=== PATIENT | female | born 1945 | race Caucasian/White ===

== ENCOUNTER → 2020-05-19 16:43 | Outpatient (CLI) | payer OTHER, SELFPAY ==
--- NOTE | ~2020-05-19 | XR_ITS ---
XR knee RT min 4V 05/19/2020 17:03 Indication: Right knee pain Procedure: 4 views right knee Comparison: No prior studies for comparison. Findings: No fracture or traumatic malalignment. Small joint effusion. No significant joint space kumar rowing. No foreign bodies. Impression: 1: No acute fracture. Small joint effusion. Reviewed, dictated and finalized at location A. Impression: 1: No acute fracture. Small joint effusion.
== END ==
PROVIDERS: PCP Physician Assistant; Visit Provider Physician Assistant
DX: M25.461 Effusion, right knee (principal)
CPT/HCPCS: 73564

== ENCOUNTER → 2021-12-24 10:59 | Outpatient (CLI) | payer MEDICARE, SELFPAY ==
--- NOTE | ~2021-12-24 | DEXA_ITS ---
Bone Density Report Name: MAGNUS JAMES Age: 76 Sex: Female Ethnicity: White Date of : 1945 Indication: osteopenia; height loss; postmenopausal Referring Provider: Crystal Garcia Study: Bone densitometry was performed. Exam Date: December 24, 2021 Accession number: [id number] Bone Density: Region BMD T-score Z-score Classification AP Spine (L1, L2) 1.086 1.0 3.4 Normal Femoral Neck (Left) 0.640 -1.9 0.4 Osteopenia Total Hip (Left) 0.788 -1.3 0.7 Osteopenia Femoral Neck (Right) 0.655 -1.7 0.5 Osteopenia Total Hip (Right) 0.772 -1.4 0.6 Osteopenia Total Hip Mean 0.780 -1.4 0.7 Osteopenia World Health Organization criteria for BMD impression classify patients as: Normal (T-score at or above -1.0), Osteopenia (T-score between -1.0 and -2.5), or Osteoporosis (T-score at or below -2.5). 10-year Fracture Risk(1): Major Osteoporotic Fracture 15% Hip Fracture 5.1% Reported Risk Factors: [place] (), Neck BMD=0.640, BMI=19.3, alcohol use (1) FRAX(R) Version 3.08. Fracture probability calculated for an untreated patient. Fracture probability may be lower if the patient has received treatment. Previous Exams: Region Exam Age BMD T-score BMD Change BMD Change Date g/cm2 vs Baseline vs Previous AP Spine(L1, L2) 12/24/2021 76 1.086 1.0 0.075* 0.001 05/28/2019 74 1.084 1.0 0.074* 0.085* 12/28/2016 71 0.999 0.2 -0.011 -0.006 04/08/2014 68 1.005 0.2 -0.005 -0.017 07/29/2011 66 1.023 0.4 0.012 -0.026* 08/08/2008 63 1.049 0.6 0.038* 0.038* 03/01/2006 60 1.011 0.3 Total Hip(Left) 12/24/2021 76 0.788 -1.3 -0.040* 0.046* 05/28/2019 74 0.742 -1.6 -0.086* -0.026 12/28/2016 71 0.768 -1.4 -0.060* -0.010 04/08/2014 68 0.778 -1.3 -0.050* -0.008 07/29/2011 66 0.786 -1.3 -0.042* -0.060* 08/08/2008 63 0.846 -0.8 0.018 0.018 03/01/2006 60 0.828 -0.9 Total Hip(Right) 12/24/2021 76 0.772 -1.4 -0.081* -0.015 05/28/2019 74 0.787 -1.3 -0.066* -0.007 12/28/2016 71 0.794 -1.2 -0.059* -0.009 04/08/2014 68 0.802 -1.1 -0.051* -0.006 07/29/2011 66 0.809 -1.1 -0.044* -0.045* 08/08/2008 63 0.854 -0.7 0.001 0.001 03/01/2006 60 0.853 -0.7 *Denotes significanc
== END ==
PROVIDERS: PCP Family Medicine; Visit Provider Physician Assistant
DX: Z78.0 Asymptomatic menopausal state (principal); M85.852 Other specified disorders of bone density and structure, left thigh; M85.851 Other specified disorders of bone density and structure, right thigh
CPT/HCPCS: 77080

== ENCOUNTER 2022-03-09 10:54 | Outpatient (CLI) | payer MEDICARE, SELFPAY ==
[2022-03-09 13:12] LABS: Hemoglobin 11.7 g/dL (12.0-15.0); Mean Corpuscular HGB Conc 32.5 g/dl (32-36); Mean Corpuscular Hemoglobin 31.8 pg (26-34); Mean Corpuscular Volume 97.8 fl (80-100); Mean Platelet Volume 10.6 fl (7.4-10.4); Platelet Count Result 237 k/mm3 (150-375); Red Blood Count 3.68 M/mm3 (4.2-5.4); Red Cell Distribution Width 14.2 % (11.5-14.5); White Blood Count 5.2 K/mm3 (4.5-10.0)
[2022-03-09 13:19] LABS: Parathyroid Intact 18.5 pg/mL (7.5-53.5)
[2022-03-09 13:23] LABS: Free T4 Free Thyroxine 1.15 ng/mL (0.78-2.19); Vitamin D 25 Hydroxy 51.4 ng/mL
[2022-03-09 13:37] LABS: Thyroid Stimulating Hormone 0.423 uIU/mL (0.465-4.680); Thyroid Stimulating Hormone Reflex 0.429 uIU/mL (0.465-4.68)
== END 2022-03-09 10:55 | disposition home or self-care (01) ==
LOC: ANHWCLAB 10:57
PROVIDERS: PCP Family Medicine; Visit Provider Internal Medicine Endocrinology, Diabetes & Metabolism
DX: E03.9 Hypothyroidism, unspecified (principal); R94.6 Abnormal results of thyroid function studies; M85.89 Other specified disorders of bone density and structure, multiple sites; R79.89 Other specified abnormal findings of blood chemistry; F41.1 Generalized anxiety disorder
CPT/HCPCS: 36415; 82306; 83970; 84439; 84443; 85027

== ENCOUNTER 2022-12-14 00:48 | Day surgery (SDC) | payer MEDICARE, SELFPAY ==
[2022-12-05 09:26] VITALS: BMI 18.6
[2022-12-14 09:20] VITALS: BP 116/66; PULSE 72; RESP 18; TEMP 36.4; O2SAT 100; BMI 18.1
[2022-12-14] MEDS: LACTATED RINGERS 1,000 ML 150 ML IV CONT (09:39)
--- NOTE | 2022-12-14 10:26 | WPDANESEPPF ---
Anes - Initial Pre Proc Eval Procedure: Operation Date: 12/14/22 10:30 Proposed Procedures p Colonoscopy - Krishna Rahman MD s [facility] Hemorrhoid Treatment - Krishna Rahman MD Date/Time: 12/14/22 10:26 Surgeon: Krishna Rahman MD Pre Op Diagnosis: Melena Patient Data Age: 77 Gender: F Height: 1.78 m Weight: 57.4 kg Last Vital Signs Temp 97.5 F L 12/14/22 09:20 Pulse 72 12/14/22 09:20 Resp 18 12/14/22 09:20 BP 116/66 12/14/22 09:20 Pulse Ox 100 12/14/22 09:20 O2 Del Method Room Air 12/14/22 09:20 Allergies Allergy/AdvReac Type Severity Reaction Status Date / Time No Known Allergies Allergy Verified 12/14/22 09:28 Home Medications Medication Instructions Recorded Confirmed Type jvapplscvtxt-kqfmjhcj-foywjk tablet 1 tablet PO DAILY 05/19/20 12/14/22 History citalopram 40 mg tablet 40 mg PO DAILY #90 tabs 05/01/22 12/14/22 Rx loratadine 10 mg tablet (Claritin) 10 mg PO DAILY 05/05/22 12/14/22 History calcium citrate 315 mg 1 tablet PO BID 06/24/22 12/14/22 History calcium-vitamin D3 6.25 mcg (250 unit) tablet (Citracal + Vitamin D Maximum) levothyroxine 112 mcg tablet 112 mcg PO DAILY #30 tabs 09/05/22 12/14/22 Rx alprazolam 0.5 mg tablet 0.5 mg PO TID PRN anxiety #30 tabs 12/12/22 12/14/22 Rx Patient hx anesthesia problems: none Family hx anesthesia problems: none Results Review: All pre-operative results and documents have been reviewed as part of the pre-operative evaluation. [facility] Past Medical History Medical History (Updated 11/08/22 @ 12:38 by Heather Apple APRN) BMI between 19-24,adult Chronic constipation Hematochezia Hypothyroidism determined by thyroid function test Osteopenia Right knee buckling Right knee pain Surgical History Surgical History History of tubal ligation Family History Family History Sibling Acute myocardial infarction Mother Family history of Parkinson's disease Grandparent Family history of malignant neoplasm of breast in first degree relative Father Family history of thoracic aortic aneurysm Social History Social History Smoking status: Never smoker Second hand tobacco smoke exposure: No Alcohol intake: current Drinks per week: 14 Substance use: never Substance use type: does not use Living arrangements: with family Occupation/Education: retired Gender identity (if verbalized by the patient): Female Sexual Orientation (if Verbalized by the Patient): Straight or Heterosexual Spiritual care concerns: No Agree to blood products: Yes Anes - Eval Final PreProcedure Day of Procedure 12/14/22 10:26 Patient weight: normal Heart: regular rate and rhythm Lungs: clear to auscultation Airway: Mallampati scale class II Neurological: alert and oriented Last oral intake: >/= 8 hours ASA classification: II Emergent: no Anesthetic plan: proceed Anesthesia type and monitoring: general GIVS and standard monitoring Results Review: All pre-operative results and documents have been reviewed as part of the pre-operative evaluation. Informed Consent: The patient's anesthetic plan and its attendant risks and benefits were discussed with the patient/family/POA. Questions were solicited and answers provided to the satisfaction of the patient/family/POA.
--- NOTE | 2022-12-14 10:32 | PM.HPGS ---
History of Present Illness History of Present Illness Consent: Risks, benefits, and alternatives have been discussed and questions answered. Patient agrees to proceed with procedure. Chief complaint: Melena Narrative: Belkis Osei is a 77 year old female with last colonoscopy 2012, lately has been dealing also with hemorrhoids Review of Systems Constitutional: Constitutional: Denies headache(s) and Denies weakness Eyes: Eyes: Denies blurry vision ENT: Reports Normal hearing present, Denies headache(s) and Denies neck pain Cardiovascular: Cardiovascular: Denies chest pain and Denies dyspnea Respiratory: Respiratory: Denies dyspnea Gastrointestinal: Gastrointestinal: Reports no additional gastrointestinal complaints Genitourinary: Genitourinary: Denies dysuria Musculoskeletal: Musculoskeletal: Denies neck pain Integumentary/Breasts: Skin/Breast: Denies dry skin Neurologic: Reports Normal hearing present, Denies headache(s) and Denies weakness Psychiatric: Psychiatric: Denies anxiety Endocrine: Endocrine: Denies change in body appearance Hematologic/Lymphatic: Hematologic/Lymphatic: Denies easy bleeding Allergic/Immunologic: Allergic/Immunologic: Denies urticaria PMFSH Past Medical History Medical History (Updated 12/14/22 @ 10:33 by Krishna Rahman MD) BMI between 19-24,adult Chronic constipation Colon cancer screening Hematochezia Hypothyroidism determined by thyroid function test Osteopenia Right knee buckling Right knee pain Surgical History Surgical History History of tubal ligation Family History Family History Sibling Acute myocardial infarction Mother Family history of Parkinson's disease Grandparent Family history of malignant neoplasm of breast in first degree relative Father Family history of thoracic aortic aneurysm Social History Social History Smoking status: Never smoker Second hand tobacco smoke exposure: No Alcohol intake: current Drinks per week: 14 Substance use: never Substance use type: does not use Living arrangements: with family Occupation/Education: retired Gender identity (if verbalized by the patient): Female Sexual Orientation (if Verbalized by the Patient): Straight or Heterosexual Spiritual care concerns: No Agree to blood products: Yes Meds Home Medications and Allergies Home Medications Medication Instructions Recorded Confirmed Type eojamctqugke-iaprukdx-daonpo tablet 1 tablet PO DAILY 05/19/20 12/14/22 History citalopram 40 mg tablet 40 mg PO DAILY #90 tabs 05/01/22 12/14/22 Rx loratadine 10 mg tablet (Claritin) 10 mg PO DAILY 05/05/22 12/14/22 History calcium citrate 315 mg 1 tablet PO BID 06/24/22 12/14/22 History calcium-vitamin D3 6.25 mcg (250 unit) tablet (Citracal + Vitamin D Maximum) levothyroxine 112 mcg tablet 112 mcg PO DAILY #30 tabs 09/05/22 12/14/22 Rx alprazolam 0.5 mg tablet 0.5 mg PO TID PRN anxiety #30 tabs 12/12/22 12/14/22 Rx Allergies Allergy/AdvReac Type Severity Reaction Status Date / Time No Known Allergies Allergy Verified 12/14/22 09:28 Vital Signs Vital Signs - 24 hr 12/14/22 09:20 Temperature 97.5 F L Pulse Rate 72 Respiratory Rate 18 Blood Pressure 116/66 Pulse Oximetry 100 Oxygen Delivery Room Air Exam Const: General: comfortable and no acute distress HENMT: Face/Nose/Sinus: Normal nares present Eyes: General: appearance normal, both eyes and all related structures Neck: Neck: no JVD Resp: Auscultation: clear to auscultation bilaterally Cardio: Rate: regular rate Rhythm: regular rhythm GI: Inspection: non-distended GI Palp: Yes Soft to palpation Skin: General skin exam: normal color Neuro: General: gait normal Speech: normal speech Extrem: General
--- NOTE | 2022-12-14 10:53 | SUR.OPER ---
colonoscopy ended at 1053 and irc started
[2022-12-14 11:00] VITALS: BP 94/52; PULSE 62; RESP 24; O2SAT 100
--- NOTE | 2022-12-14 11:01 | W.PM.PROC2 ---
Procedure Note - Detailed Date of Procedure 12/14/22 Pre-op Diagnosis blood in stools, hemorrhoids Post-op Diagnosis Same Procedure Performed irc of internal hemorrhoids Surgeon Krishna Rahman MD Anesthesia MAC (also had colonoscopy) Description of Procedure noted skin tags and external hemorrhoids, also small rectal prolapse. Found grade II internal hemorrhoids with anoscopy, IRC probe advanced and int hemorrhoids treated 1.5 seconds x5
[2022-12-14 11:10] VITALS: BP 109/64; PULSE 60; RESP 19; O2SAT 100
[2022-12-14 11:20] VITALS: BP 112/68; PULSE 62; RESP 21; O2SAT 100
== END 2022-12-14 11:27 | disposition home or self-care (01) ==
PROVIDERS: PCP Family Medicine; Visit Provider Internal Medicine Gastroenterology
PROC: 0DJD8ZZ Inspection of Lower Intestinal Tract, Via Natural or Artificial Opening Endoscopic (ICD-10-PCS; CPT 45378; principal; 2022-12-14 10:30)
PROC: (CPT 46930; 2022-12-14 10:30)
DX: Z12.11 Encounter for screening for malignant neoplasm of colon (principal); K62.3 Rectal prolapse; K64.1 Second degree hemorrhoids; K64.4 Residual hemorrhoidal skin tags; E03.9 Hypothyroidism, unspecified; M85.80 Other specified disorders of bone density and structure, unspecified site
CPT/HCPCS: 46930; G0121; J2704; J7120

== ENCOUNTER 2024-07-13 16:57 | Emergency (ER) | payer MEDICARE, SELFPAY ==
[2024-07-13 17:15] VITALS: BP 111/62; PULSE 69; RESP 16; TEMP 35.8; O2SAT 99
--- NOTE | 2024-07-13 18:24 | ED.ANIMALBIT ---
HPI - Animal Bite General Chief Complaint: Animal Bite Stated Complaint: dog bite left leg Time Seen by Provider: 07/13/24 18:24 Source: patient Mode of arrival: ambulatory Limitations: no limitations History of Present Illness HPI narrative: 79 yo F presents with dog bite to L lower leg. Was bit by neighbor's dog this afternoon. Bleeding controlled. Tetanus UTD. Pt states neighbor's dog UTD on vaccines. All systems reviewed and negative except as noted above. Related Data Home Medications Medication Instructions Recorded Confirmed ztdnnwqgypfp-espppeig-lclbuz tablet 1 tablet PO DAILY 05/19/20 07/13/24 calcium 315 mg (as 1 tablet PO BID 06/24/22 07/13/24 citrate)-vitamin D3 6.25 mcg (250 unit) tablet (Citracal + Vitamin D Maximum) Allergies Allergy/AdvReac Type Severity Reaction Status Date / Time No Known Allergies Allergy Verified 07/13/24 17:38 Review of Systems Review of Systems: CONSTITUTIONAL: Denies fever, chills, or sweats. EYES: Denies visual changes, redness, or discharge. ENT: Denies rhinorrhea, congestion, sore throat, or otalgia. CARDIOVASCULAR: Denies chest pain, palpitations, or edema. RESPIRATORY: Denies cough or dyspnea. GASTROINTESTINAL: Denies abdominal pain, nausea, vomiting, or diarrhea. GENITOURINARY: Denies dysuria or hematuria. SKIN: Denies rash or itching. Reports dog bite to left lower leg. MUSCULOSKELETAL: Denies back pain, joint pain, or myalgia. NEUROLOGIC: Denies headache, numbness, or weakness. PSYCHIATRIC: Denies anxiety or depression. All other systems reviewed are negative, except as documented in HPI. [facility] Past Medical History Medical History Anxiety BMI between 19-24,adult Chronic constipation Colon cancer screening Hematochezia Hypothyroidism determined by thyroid function test Osteopenia Right knee buckling Right knee pain Surgical History Surgical History History of tubal ligation Family History Family History Sibling Acute myocardial infarction Mother Family history of Parkinson's disease Grandparent Family history of malignant neoplasm of breast in first degree relative Father Family history of thoracic aortic aneurysm Social History Social History Smoking status: Never smoker Second hand tobacco smoke exposure: No Alcohol intake: current Drinks per week: 1 Substance use: never Substance use type: does not use Lack of Transportation: No Lack of Food: Never True Current Housing: I Have Housing Concerned About Future Housing: No Difficulty Paying Gas/Electric Bills: No Difficulty Paying for Meds: No Currently Unemployed: No Difficulty w/ Childcare or Family Care: No Living arrangements: with family Occupation/Education: retired Gender identity (if verbalized by the patient): Female Sexual Orientation (if Verbalized by the Patient): Straight or Heterosexual Spiritual care concerns: No Agree to blood products: Yes Comments At time of signature, agree with nursing past medical, surgical, social and family history. There is no relevant family history pertinent to the presenting complaint. Exam Narrative: GENERAL: This is a well-nourished, well-developed patient, in no apparent distress. HEAD: normocephalic, atraumatic. EYES: PERRL. Sclera clear/white. Vision is grossly intact. EARS: External ears normal, auditory canals clear and without drainage, TMs normal without perforation. Hearing grossly intact. NOSE: External nose normal with no obvious nasal discharge, nares without redness, no rhinorrhea. THROAT: Mucous membranes moist, posterior pharynx clear. NECK: Neck supple, non-tender without lymphadenopathy, masses or thyromegaly. CARDIOVASCULAR: Regular rate and rhythm without mur
== END 2024-07-13 18:41 | disposition home or self-care (01) ==
PROVIDERS: Emergency Provider Nurse Practitioner Family; PCP Family Medicine
DX: S81.852A Open bite, left lower leg, initial encounter (principal); W54.0XXA Bitten by dog, initial encounter; E03.9 Hypothyroidism, unspecified; M85.80 Other specified disorders of bone density and structure, unspecified site
CPT/HCPCS: 99213; G0463

== ENCOUNTER 2024-08-06 13:27 | Outpatient (CLI) | payer MEDICARE, SELFPAY ==
--- NOTE | ~2024-08-06 | DEXA_ITS ---
Bone Density Report Name: MAGNUS JAMES Age: 79 Sex: Female Ethnicity: White Date of : 1945 Indication: postmenopausal; screening for osteoporosis; secondary osteoporosis; Referring Provider: Christina Fuller Study: Bone densitometry was performed. Exam Date: August 06, 2024 Accession number: [id number] Bone Density: Region BMD T-score Z-score Classification AP Spine(L1-L4) 1.236 1.7 4.5 Normal Femoral Neck (Left) 0.640 -1.9 0.5 Osteopenia Total Hip (Left) 0.693 -2.0 0.1 Osteopenia Femoral Neck (Right) 0.700 -1.3 1.0 Osteopenia Total Hip (Right) 0.737 -1.7 0.4 Osteopenia Femoral Neck Mean 0.670 -1.6 0.7 Osteopenia Total Hip Mean 0.715 -1.9 0.3 Osteopenia World Health Organization criteria for BMD impression classify patients as: Normal (T-score at or above -1.0), Osteopenia (T-score between -1.0 and -2.5), or Osteoporosis (T-score at or below -2.5). 10-year Fracture Risk(1): Major Osteoporotic Fracture 12% Hip Fracture 3.6% Reported Risk Factors: [place] (), Neck BMD=0.640, BMI=18.7, secondary osteoporosis (1) FRAX(R) Version 3.08. Fracture probability calculated for an untreated patient. Fracture probability may be lower if the patient has received treatment. Clinical Information Provided by Patient: Has secondary osteoporosis Has used the following medications: Calcium Patient maximum height was 70 Menopause Age: 46 No regular weight bearing exercise Does not regularly consume dairy products Drinks caffeinated beverages Onset of menses at age 11 Number of children 1 Impression: The patient has low bone mass, based on the Left Total Hip T-score. Discussion: BONE DENSITY IS LOW AT ONE OR MORE SKELETAL SITES. This patient's lowest T-score is low at one or more skeletal sites. It meets the World Health Organization's (WHO) criteria for ?low bone mass? (T-score between -1.0 and -2.5). The patient's 10-year risk of fracture as calculated by FRAX is less than the threshold where pharmacological therapy is recommended by the National Osteoporosis Foundation (NOF). However, all treatment decisions require clinical judgment and consideration of individual patient factors, including patient preferences, comorbidities, previous drug use, risk factors not captured in the FRAX model (e.g., frailty, falls, vitamin D deficiency, increased bone turnover, interval significant decline in bone density) and possible under or overestimation of fracture risk by FRAX. The patient should follow a healthful lifestyle (good nutrition with adequate calcium and vitamin D, and appropriate weight-bearing exercise). Follow-Up: Consider repeating this study in 2 to 3 years to reassess this patient's status, or sooner if there is some new clinical indication. Reported by: JEFF on 08/06/2024 2:23:00 PM. Reviewed, dictated and finalized at location A.
== END 2024-08-06 13:28 | disposition home or self-care (01) ==
PROVIDERS: PCP Family Medicine; Visit Provider Internal Medicine Endocrinology, Diabetes & Metabolism
DX: Z78.0 Asymptomatic menopausal state (principal); M85.89 Other specified disorders of bone density and structure, multiple sites
CPT/HCPCS: 77080

== ENCOUNTER 2024-11-11 15:51 | Outpatient (CLI) | payer MEDICARE, SELFPAY ==
--- NOTE | ~2024-11-11 | XR_ITS ---
EXAM: XR hand LT min 3V DATE: 11/11/2024 16:05 HISTORY: M79.645 - Pain in left finger(s) . COMPARISON: 02/20/2009, 12/23/2008. FINDINGS: Decreased mineralization. Fracture of the dorsal corner of the third distal phalanx with 2 mm distraction and flexion of the DIP joint. No lytic or blastic lesion. Scattered arthritic changes , typical of osteoarthritis, moderate in the second and third DIP joints and first CMC joint. No eros ion or periosteal change. Soft tissue swelling at the third DIP joint. IMPRESSION: Mallet fracture of the left third digit. 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 Reviewed, dictated and finalized at location K. INTERPRETER IMPRESSION: Mallet fracture of the left third digit. Polyarticular osteoarthrit is of the left hand and wrist.
--- OUTSIDE RECORDS SUMMARY | 2024-11-11 18:16 | XMS_ITS | Referral Summary ---
Author Organization [facility] [employer] Address [address] [place] [address] Care Team Providers Care Go Cart Mechanic Name Role Phone Seamus Briones MD Primary Care Provider [phone] Arianna Cohen MD Unavailable [phone] Source Comments [facility],non-owned Affiliates and Associated Physician Practices is amultiple site organization consisting of ambulatory clinics and hospital sitesin [place], [place], [place] and [place]. This disclosure is being madepursuant to the Care Everywhere program and may not contain all information available regarding this patient. Last updated 18.[facility] [employer] Allergies No known active allergies Medications * Be aware that medications may not be up to date on this document. Alwaysverify current medications with the patient. Medication Sig Dispensed Refills Start Date End Date Status levothyroxine (Synthroid) 88 MCG tablet Take 1 (one) tablet by mouth daily before breakfast 09/29/2023 Active citalopram (CeleXA) 40 MG tablet Take 1 (one) tablet by mouth once daily Active ALPRAZolam (Xanax) 0.5 MG tablet Take 1 (one) tablet by mouth at bedtime 11/27/2023 Active Active Problems Problem Noted Date Diagnosed Date Condyloma acuminatum of vulva 03/30/2023 Adjustment disorder with mixed anxiety and depre ssed mood 11/25/2015 Panic disorder without agoraphobia 11/02/2015 Panic attacks 11/02/2015 12/22/2023 Disorder of bone and articular cartilage 014 12/22/2023 Overview (12/22/2023): Osteopenia;Practice ID: 0001 Immunizations Name Administration Dates Next Due INFLUENZA VACCINE 05/26/2023 Social History Tobacco Use Types Packs/Day Years Used Date Smoking Tobacco: Never Tobacco Cessation:Counseling Given: Not Answered Alcohol Use Standard Drinks/Week Comments No 0 (1 standard drink = 0.6 oz pur e alcohol) Sex and Gender Information Value Date Recorded Sex Assigned at Not on file Gender Identity Not on file Sexual Orientation Not on file Last Filed Vital Signs Vital Sign Reading Time Taken Comments Blood Pressure 101/66 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
--- OUTSIDE RECORDS SUMMARY | 2024-11-11 18:16 | XMS_ITS | Patient Health Summary ---
Author Organization [facility] Address [address] [place] [address] Care Team Providers Care Marketing Communications Specialist Name Role Phone Seamus Briones MD Primary Care Provider [phone] Arianna Cohen MD Unavailable [phone] Note from [facility],non-owned Affiliates and Associated Physician Practices is amultiple site organization consisting of ambulatory clinics and hospital sitesin [place], [place], [place] and [place]. This disclosure is being madepursuant to the Care Everywhere program and may not contain all information available regarding this patient. Last updated 18.[facility] Allergies No known active allergies Medications * Be aware that medications may not be up to date on this document. Alwaysverify current medications with the patient. * levothyroxine (Synthroid) 88 MCG tablet(Started 09/29/2023) Take 1 (one) tablet by mouth daily before breakfast * citalopram (CeleXA) 40 MG tablet Take 1 (one) tablet by mouth once daily * ALPRAZolam (Xanax) 0.5 MG tablet(Started 11/27/2023) Take 1 (one) tablet by mouth at bedtime Active Problems Problem Noted Date Diagnosed Date Condyloma acuminatum of vulva 03/30/2023 Adjustment disorder with mixed anxiety and depre ssed mood 11/25/2015 Panic disorder without agoraphobia 11/02/2015 Panic attacks 11/02/2015 12/22/2023 Disorder of bone and articular cartilage 014 12/22/2023 Immunizations * INFLUENZA VACCINE(Given 05/26/2023) Social History Tobacco Use Types Packs/Day Years [...] Comments Blood Pressure 101/66 11/02/2015 1:03 PM [employer] Pulse 73 11/02/2015 1:03 PM [employer] Temperature - - Respiratory Rate 16 11/02/2015 1:03 PM [employer] Oxygen Saturation - - Inhaled Oxygen Concentration - - Weight 59 kg (130 lb) 12/22/2023 2:55 PM CDT Height 177.8 cm (5' 10 ) 12/22/2023 2:55 PM CDT Body Mass Index 18.65 12/22/2023 2:55 PM CDT Procedures * ID EAR MICROSCOPY EXAMINATION(Performed 12/22/2023) Performed for Tympanosclerosis of right ear * AUDIOLOGY/TYMPANOMETRY ORDER(Performed 12/22/2023) * DERMATOPATHOLOGY(Performed 03/02/2022) * DERMATOPATHOLOGY(Performed 06/21/2021) * DERMATOPATHOLOGY(Performed 12/08/2015) * DERMATOPATHOLOGY(Performed 10/27/2015) * DERMATOPATHOLOGY(Performed 10/27/2015) Results * ID EAR MICROSCOPY EXAMINATION (12/22/2023 3:09 PM CDT) Narrative Seamus Mayers MD - 12/22/2023 3:09 PM CDT Seamus Mayers MD 12/22/2023 3:10 PM Procedure: Microscopic exam of the ear(s) Indications: Tympanosclerosis Findings: See main note. Procedure in detail: The binocular operating microscope and and ear speculum were used to exam the ear(s). The patient tolerated the procedure well and there was no bleeding. Seamus Mayers MD Seamus Mayers MD PROCEDURE/MINOR ALVINO GICAL ORDERABLES * AUDIOLOGY/TYMPANOMETRY ORDER (12/22/2023 2:46 PM CDT) Narrative Ledy Perez AuD - 12/22/2023 2:49 PM CDT Subjective: Belkis Osei is a 78 year old female who is here for a hearing evaluation on 12/22/23. 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 Mayers 2) Re-test hearing per medical recommendation and/or annual hearing test 3) HAE for amplification pending medical clearance 4) Wear HPD in noise Javier Aguilar, [facility]-A Manager Visual Ledy Herrera AUDIOLOGY SERVICES ORDERABLES * DERMATOPATHOLOGY (03/02/2022 12:00 AM CDT) Only the most recent of5 resultswithin the time period is included. Case Report Dermatopathology Report Case: [id number] Authorizing Provider: Cookie Segovia MD Collected: 03/02/2022 12:00 AM Ordering Location: [facility] DermPath Lab Received: 03/02/2022 04:27 PM Pathologist: Ashley Pierce MD Specimen: Skin, central chest 2 3:17 PM CDT DERMATOPATHOLOGY LABORATORY Final Diagnosis Specimen A. SKIN, central chest: ACTINIC KERATOSIS (L57.0) 2 3:17 PM CDT DERMATOPATHOLOGY LABORATORY Clinical History R/O BCC; Irritated, Non Healing 2 3:17 PM CDT DERMATOPATHOLOGY LABORATORY Gross Description Specimen A: Received is one formalin filled container labeled with the patient's name and designated central chest. The specimen consists of a shave biopsy measuring [id number]. Jar 0. 2 3:17 PM CDT DERMATOPATHOLOGY LABORATORY Microscopic Description Specimen A. SKIN, central chest: There is focal parakeratosis. The lower half of the epidermis shows disorderly maturation of keratinocytes with nuclear pleomorphism. 2 3:17 PM CDT DERMATOPATHOLOGY LABORATORY Disclaimer An external and internal positive and negative controls are appropriate for the histochemical, immunohistochemical and immunofluorescence stain(s) in this case (if any), except where stated explicitly. The performance characteristics of the stain(s) cited in this report were developed and its performance characteristic determined by the Dermatopathology Laboratory at [facility], directed by Dr. Marcell Davis. These tests need not be, and therefore are not, approved by the [place] Food and Drug Administration. The tests are used for clinical purposes. Billing Codes Specimen Charges Stain Charges 51015 1 2 3:17 PM CDT DERMATOPATHOLOGY LABORATORY Embedded Images 2 3:17 PM CDT DERMATOPATHOLOGY LABORATORY Pathology/Cytolog y TISSUE SPECIMEN FROM SKIN / Unknown 03/02/2022 03/02/2022 4:27 PM CDT Cookie Segovia MD LAB - PATHOLOGY/CYT OLOGY ORDERABLES DERMATOPATHOLOGY LABORATORY [facility] - Department of Dermatology [facility] [address] [place] [address], [address] [phone] Care Teams Marketing Communications Specialist Relationship Specialty Start Date End Date Seamus Briones MD [address] [place] [address] PCP - General 09/14/15 Arianna Cohen MD [address] [phone] PCP - Attributed-Sergey KEYES 11/24/23
--- OUTSIDE RECORDS SUMMARY | 2024-11-11 18:16 | XMS_ITS | Clinical Summary ---
Author Organization [facility] [employer] Address [address] [place] [address] Care Team Providers Care Auto Bumper Straightener Name Role Phone Seamus Briones MD Primary Care Provider [phone] Arianna Cohen MD Unavailable [phone] Source Comments [facility] [employer],non-owned Affiliates and Associated Physician Practices is amultiple site organization consisting of ambulatory clinics and hospital sitesin [place], [place], [place] and [place]. This disclosure is being madepursuant to the Care Everywhere program and may not contain all information available regarding this patient. Last updated 18.[facility] [employer] Allergies No known active allergies Medications * [...] Comments Blood Pressure 101/66 11/02/2015 1:03 PM FINISH SPECIALIST Pulse 73 11/02/2015 1:03 PM FINISH SPECIALIST Temperature - - Respiratory Rate 16 11/02/2015 1:03 PM FINISH SPECIALIST Oxygen Saturation - - Inhaled Oxygen Concentration - - Weight 59 kg (130 lb) 12/22/2023 2:55 PM CDT Height 177.8 cm (5' 10 ) 12/22/2023 2:55 PM CDT Body Mass Index 18.65 12/22/2023 2:55 PM CDT Plan of Treatment Health Maintenance Due Date Last Done Comments BONE DENSITY TESTING 1943 DTAP/TDAP/TD VACCINES (1 - Tdap) 1962 PNEUMOCOCCAL VACCINE 50+ (1 of 1 - PCV) 1993 ZOSTER VACCINE (1 of 2) 1993 Respiratory Syncytial Virus (RSV) Vaccine Pt: or over 60 yrs (1 - 1-dose 75+ series) 2018 COVID-19 VACCINE (1 - 2023-2 5 season) 2024 INFLUENZA VACCINE (#1) 2024 05/26/2023 DEPRESSION SCREENING 09/25/2024 MEDICARE AWV CALENDAR YEAR 2024 HEPATITIS B VACCINE Aged Out No longe r eligible based on patient's age to complete this topic HIB VACCINE Aged Out No longer eligi ble based on patient's age to complete this topic HPV VACCINE Aged Out No longer eligi ble based on patient's age to complete this topic MENINGOCOCCAL (Group B) VACCINE Aged Out No longer eligible based on patient's age to complete this topic MENINGOCOCCAL VACCINE Aged Out No camila codi eligible based on patient's age to complete this topic Care Teams Auto Bumper Straightener Relationship Specialty Start Date End Date Seamus Briones MD [address] [place] [address] PCP - General 09/14/15 Arianna Cohen MD [address] [phone] PCP - Attributed-Sergey KEYES 11/24/23
--- OUTSIDE RECORDS SUMMARY | 2024-11-11 18:16 | XMS_ITS | Data Portability ---
Author Organization [facility] [place] Address [address] [place] [address] Care Team Providers Care Shower Attendant Name Role Phone WALT CELAYA Primary Care Provider Assessment No assessment recorded. Plan of Treatment Reminders Order Date Submit Date Provider Last Modified By Organization Details Last Modified Time Details Appointments MED CHECK 2024 10:00A M ROVERTO Blair Not available Not available Not available Lab None recorded. Referral None recorded. Procedures None recorded. Surgeries None recorded. Imaging None recorded. Medication Orders triamcino lone acetonide 0.1 % topical ointment 2024 025 [facility], [address] [place] [address], [id number], 10/10/2024 11:38:06 estradiol 0.01% (0.1 mg/gram) vaginal cream 2024 025 [facility], [address] [place] [address], [id number], 10/10/2024 11:37:39 nystatin 100,000 unit/gram topical ointment 2022 023 [facility], [address] [place] [address], [id number], 04/14/2023 11:42:18 triamcino lone acetonide 0.1 % topical ointment 2022 023 [facility], [address] [place] [address], [id number], 04/14/2023 11:42:18 Patient TargetsNo targets recorded. Patient InstructionsNo instructions recorded. Reason for Referral None Reported. Results Created Date Observation Date Name Description Value Unit Range Abnormal Flag Note LastModifiedBy Organization Detail LastModifiedTime 03/08/2003/08/2023 SURGI [facility] PATHO LOGY surgical pathology SEE RESULT S BELOW CASE REPOR T: Surgi marilin Patho logy Repor t Case: 3 Autho brown mendez Provi ismael: Victor Hugo Sahu Colle cted: 03/08 1353 VAN HELPER Order ing Locat ion: [place] Patho logy Recei rafael: 03/09 0138 Patho logis t: Roxie Hutton MD Speci men: Vulva , Vulva r lesio n FINAL DIAGN OSIS: Vulva , biops y: -Cons isten t with pavan chaka grimaldo natum , see comme nt. Elect hilaria toledo peng d by Roxie Hutton MD on 2022 at 12:57 PM ----- ----- ----- ----- ----- ----- ----- ----- ----- ----- ----- ----- ----- ----- ----- ----- ----- ---- COMME NT: Multi ple deepe r level s were exami aide. A GMS stain was perfo rmed on block A1 and is negat rishi for funga l organ isms. CLINI MARILIN INFOR MATIO N: n90.8 9 MICRO SCOPI C DESCR IPTIO N: A micro scopi c exami natio n was perfo rmed. GROSS DESCR IPTIO N: A. Vulva . The speci men is label ed with the patie nt's name, demog raphi cs and vulv a . Recei rafael in forma eric is a 0.5 cm piece of white -chan tissu e. The entir e speci men is submi tted in one casse tte. Gross ed by Mignon Jones ll Not Available [facility] (Lab) [address], [place], [address], 03/10/2023 14:00:07 03/30/20 23 03/30/2023 SURGI MARILIN PATHO LOGY surgical pathology SEE RESULT S BELOW CASE REPOR T: Surgi marilin Patho logy Repor t Case: [id number] Autho napoleonyanni vanessa Provi ismael: Victor Hugo Sahu Colle cted: 03/30 1203 VAN HELPER Order ing Locat ion: [place] Patho [place]y Recei rafael: 03/31 0209 Patho logis t: Carleen Durham MD Speci men: Vulva , Vulva r bx FINAL DIAGN OSIS: Vulva , biops y: -Lich en scler osus. Elect hilaria khoury d by Carleen Durham MD on 023 at 11:47 AM ----- ----- ----- ----- ----- ----- ----- ----- ----- ----- ----- ----- ----- ----- ----- ----- ----- ---- CLINI MARILIN INFOR MATIO N: N90.8 9 MICRO SCOPI C DESCR IPTIO N: A micro scopi c exami natio n was perfo rmed. GROSS DESCR IPTIO N: A. Vulva . The speci men is label ed with the patie nt's name and demog raphi cs only. Recei rafael in forma eric is a 0.2 cm fragm ent of rocio merrill. It is submi tted all in casse tte A1. Gross ed by Kinjal Martel on Not Available [facility] (Lab) [address], [place], [address], 03/31/2023 12:50:14 Result Notes None recorded. 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 manager exam (general) (routine) w/o abn findings; Practice ID: 0001 Not Available [facility] 0 14:59:[address] Concept Active 2016 Encntr for general adult medical exam w/o abnormal findings; Practice ID: 0001 Not Available [facility] 0 14:59:54 Disorder of bone and articular cartilage 640292989 Active 2013 Osteopeni a;Practic e ID: 0001 Not Available [facility] 0 14:59:55 Vaginitis and vulvovagi nitis Active 2013 Vaginitis and vulvovagi nitis, unspecifi ed;Practi ce ID: 0001 Not Available [facility] 0 14:59:55 Screening for malignant neoplasm of rectum Active 2013 Screening for malignant neoplasms of the rectum;Pr actice ID: 0001 Not Available [facility] 0 14:59:55 Adult health examinati on Active 2013 Routine general medical examinati on at a health care facility; Practice ID: 0001 Not Available [facility] 0 14:59:55 Specializ ed medical examinati on Active 2013 Routine gynecolog ical examinati on;Practi ce ID: 0001 Not Available [facility] 0 14:59:55 Screening for malignant neoplasm of cervix Active 2013 Pap Smear;Pra ctice ID: 0001 Not Available [facility] 0 14:59:55 Evaluatio n finding Active 2018 Hematuria , unspecifi ed;Practi ce ID: 0001 Not Available [facility] 0 14:59:55 Condyloma acuminata of vulva 938739074 Active 2022 Olga Vega MARTHA- [address], [place], [address], [facility] 3 14:14:39 Problem Notes None recorded. Procedures Surgical History Date Name Laterality Status Provider Name and Address Organization Details Recorded Time 3 Vulvar Biopsy completed Olga Vega, [facility] [address], [place], [address], [facility] 03/30/2023 14:09:44 3 Vulvar Biopsy completed Olga Vega [facility] [address], [place], [address], [facility] 03/08/2023 11:58:02 3 biopsy of vulva completed Jeannine Guillen [facility] 03/30/2023 11:12:30 9 Most Recent Bone Density completed [facility] 02/15/2023 12:54:54 9 Date of Last Pap Smear completed [facility] 02/15/2023 11:11:27 9 Date of Last Mammogram completed [facility] 02/15/2023 12:55:12 7 Tubal Ligation completed [facility] 02/15/2023 11:25:15 Imaging Results None recorded. Procedure Notes None recorded. Medical Equipment None Reported. Allergies No known drug allergies Medications Name Sig Start Date Stop Date Status Note LastModified by Organization Details LastModified Time amoxicill in 500 mg capsule take 1 capsule (500MG) by oral route 2 times every day for 10 days 05/08 completed Prescrib ed Elsewher e: No Locat ion: Adriano Patterson odify By: cmedical Encount er DateTime : 04/29/20 13 10:01:55 AM Not Available Not Available Not Available citalopra m 40 mg tablet active Not Available Not Available Not Available alprazola m 1 mg tablet take 1 tablet by oral route 3 times every day 02/15 completed Prescrib ed Elsewher e: Yes Loca tion: [facility] odify By: amanuel lea DateTime : 06/30/20 11 04:30:00 PM Not Available Not Available Not Available nystatin 100,000 unit/gram topical ointment APPLY TO THE AFFECTED AREA(S) BY TOPICAL ROUTE 2 TIMES PER DAY PRN active Not Available Not Available No t Available fluconazo le 150 mg tablet Take 1 tablet every day by oral route with meals for 1 day. 10/17 completed Not Available Not Available Not Available sulfameth oxazole 400 mg-trimet hoprim 80 mg tablet 10/10 completed Not Available Not Available Not Available clobetaso l 0.05 % topical cream apply by topical route 2 times every day a thin layer to the affected area(s) 03/11 completed Prescrib ed Elsewher e: No Locat ion: Filipe merrill [facility] odify By: amhuong ruby DateTime : 03/05/20 14 11:00:00 AM Not Available Not Available Not Available nystatin- triamcino lone 100,000 unit/gram -0.1 % topical ointment Apply by topical route for 14 days. 03/08 completed Not Available Not Available Not Available levothyro xine 100 mcg tablet 10/17 completed Not Available Not Available Not Available levothyro xine 88 mcg tablet TAKE 1 TABLET BY MOUTH DAILY active Not Available Not Available No t Available alprazola m 0.5 mg tablet TAKE 1 TABLET BY MOUTH THREE TIMES DAILY NEEDED FOR ANXIETY active Not Available Not Available No t Available citalopra m 20 mg tablet TAKE 1 AND 1/2 TABLETS BY MOUTH DAILY active Not Available Not Available No t Available Synthroid 25 mcg tablet take 1 tablet by oral route every day 03/08 completed Prescrib ed Elsewher e: Yes Loca tion: Filipe [facility] odify By: joselyn lea DateTime : 06/29/20 11 04:25:22 PM Not Available Not Available Not Available triamcino lone acetonide 0.1 % topical ointment APPLY A THIN LAYER TO THE AFFECTED AREA(S) BY TOPICAL ROUTE active Not Available Not Available No t Available lansopraz ole 30 mg capsule,d elayed release active Not Available Not Available Not Available estradiol 0.01% (0.1 mg/gram) vaginal cream Insert 1g vaginall y at bedtime 2 times per week active Not Available Not Available No t Available Zoloft 25 mg tablet take 1 tablet (25MG) by oral route every day 06/30 completed Prescrib ed Elsewher e: No Locat ion: Filipe [facility] odify By: tkjohnn Charles r DateTime : 06/29/20 11 04:25:22 PM Not Available Not Available Not Available ipratropi um bromide 21 mcg (0.03 %) nasal spray active Not Available Not Available Not Available levothyro xine 112 mcg tablet 03/08 completed Not Available Not Available Not Available amoxicill in 875 mg-potass ium clavulana te 125 mg tablet TAKE 1 TABLET BY MOUTH EVERY 12 HOURS FOR 5 DAYS 10/10 completed Not Available Not Available Not Available Zyrtec 10 mg capsule Take 1 capsule every day by oral route as directed for 7 days. 2022 active Not Available Not Available Not Avai lable Citracal- D3 Soft Chew 500 mg-1,000 unit-40 mcg tablet 03/08 completed Prescrib ed Elsewher e: Yes Loca tion: [facility] odify By: rosalia ruby DateTime : 03/11/20 19 10:00:00 AM Not Available Not Available Not Available Centrum Silver Women 8 mg iron-400 mcg-50 mcg tablet 2018 active Prescrib ed Elsewher e: Yes Loca tion: [facility] odify By: rosalia ruby DateTime : 03/11/20 19 10:00:00 AM Not Available Not Available Not Available Procto-Me d HC 2.5 % topical cream perineal applicato r active Not Available Not Available Not Available Vitals Date Recorded Body height Body mass index (BMI) Body weight Systolic blood pressure Diastolic blood pressure Provider Name and Address Organization Details Last Updated DateTime 03/08/2023 177.8 cm 18.8 kg/m2 09417.6 g 115 mm[Hg] 69 mm[Hg] Jeannine Guillen ID - [facility] 3 11:21:40 Date Recorded Body height Body mass index (BMI) Body weight Systolic blood pressure Diastolic blood pressure Provider Name and Address Organization Details Last Updated DateTime 03/30/2023 177.8 cm 18.9 kg/m2 12515.19 g 114 mm[Hg] 69 mm[Hg] Jeannine Corteser [facility] 3 11:10:08 Date Recorded Body height Body mass index (BMI) Body weight Provider Name and Address Organization Details Last Updated DateTime 04/14/2023 177.8 cm 18.8 kg/m2 11268.6 g [facility] 04/14/2023 11:28:08 Date Recorded Systolic blood pressure Diastolic blood pressure Provider Name and Address Organization Details Last Updated DateTime 04/14/2023 116 mm[Hg] 80 mm[Hg] Olga Vega, [facility]- [address], [place], [address], [facility] 04/14/2023 11:38:01 Date Recorded Body height Body mass index (BMI) Body weight Systolic blood pressure Diastolic blood pressure Provider Name and Address Organization Details Last Updated DateTime 10/17/2023 177.8 cm 18.9 kg/m2 00209.19 g 126 mm[Hg] 67 mm[Hg] Jeannine Corteser [facility] 4 11:09:25 Date Recorded Body height Body mass index (BMI) Body weight Systolic blood pressure Diastolic blood pressure Provider Name and Address Organization Details Last Updated DateTime 10/10/2024 177.8 cm 19.1 kg/m2 87758.79 g 110 mm[Hg] 67 mm[Hg] MELITON Merchant [facility] 5 11:12:05 Social History Question Answer Notes LastModified by Organizat ion Details LastModified Time Tobacco Smoking Status Never Smoker Jeanninewinnie Corteser [facility], [facility] 03/08/2023 11:22:35 What Is Your Level Of Alcohol Consumption? None Information not available 03/08/2023 Are You Blind Or Do You Have Difficulty Seeing? No Information n ot available 10/10/2024 In The 14 Days Before Symptom Onset, Have You Had Close Contact With A Laboratory-confirm ed COVID-19 While That Case Was Ill? No Information n ot available 03/08/2023 In The 14 Days Before Symptom Onset, Have You Had Close Contact With A Person Who Is Under Investigation For COVID-19 While That Person Was Ill? No Information not available 03/08/2023 Have You Been To An Area Known To Be High Risk For COVID-19? No Information not available 03/08/2023 Are You Deaf Or Do You Have Serious Difficulty Hearing? No [email or web address] Information not available 10/10/2024 Are There Any Guns Present In Your Home? No Information not available 10/10/2024 Do You Use Your Seat Belt Or Car Seat Routinely? Yes [email or web address] Information not available 10/10/2024 Are You Sexually Active? No [email or web address] Information not available 10/10/2024 Do You Have Smoke And Carbon Monoxide Detectors In Your Home? Yes [email or web address] Information not available 10/10/2024 Do You Use Any Illicit Or Recreational Drugs? No Information not available 03/08/2023 Do You Use Sunscreen Routinely? No [email or web address] Information not available 10/10/2024 Has Tobacco Cessation Counseling Been Provided? No [email or web address] Information not available 10/10/2024 Do You Or Have You Ever Used Any Other Forms Of Tobacco Or Nicotine? No Information not available 10/10/2024 Sex: Unknown Functional Status Question Answer Note LastModified by Organization D etails LastModified Time Do you have difficulty walking or climbing stairs? No [email or web address] Information not available 10/10/2024 Are you able to care for yourself? Yes [email or web address] Information n ot available 10/10/2024 Do you have difficulty dressing or bathing? No [email or web address] Information not available 10/10/2024 Mental Status None recorded. Family History Relationship Description Onset Age of this Age Resolved Age Notes LastModified by Organization Details LastModified Time Maternal Grandmother Malignant tumor of breast [email or web address] Not available 2022 11:12:59 Medical History Condition Response Allergies (Food, seasonal, environmental ) N Other Y Drug/Latex Allergies/Reactions N Blood Transfusion N Breast Cancer N Dermatologic Disorders N Lung Disease N Defects or Inherited Disease N Breast Problem N Gestational Diabetes N Hematologic disorders N Anesthesia Complications N History of STI N Deep Vein Thrombosis N Polycystic ovary syndrome N Anxiety Disorder N Autoimmune disease N Arthritis N Polyps N Infertility N Acid Reflux (GERD) N History of abnormal pap N Cancer N Varicosities N Stroke N Neurologic/Epilepsy N Endometriosis N High Cholesterol N Fibromyalgia N Headaches N Kidney Disease N Heart Problems N Thyroid Problems Y Kidney or Bladder Problems N GI Problems N Eating Disorder N Anemia N Art (IVF or FET) N Psychiatric Illness N Ovarian Cancer N Diabetes N Pulmonary (TB, Asthma) N Hepatitis/Liver Disease N No Past Medical History N Eczema N Urinary Tract Infection N Abuse/Domestic Violence N Asthma N Trauma/Violence N Depression/ depression N Heart Disease N Pre-Eclampsia N Hypertension N Osteoporosis N Thrombophilias N Gynecological History Statement/Question Response Abnormal Pap N Date of Last Mammogram 03/11/2019 Most Recent Bone Density 05/31/2019 Sexually Active? N Menses Monthly N STIs/STDs N HPV Vaccine N Date of Last Pap Smear 03/11/2019 Sexual Problems? N Current Control Method Tubal Ligat ion Obstetrics History GPAL:G 1 P 1 0 0 0 Type Value Full Term 1 Living 0 Total 1 Past Encounters Encounter ID Performer Location Encounter Start Date Encounter Closed Date Diagnosis/Indication Diagnosis SNOMED-CT Code Diagnosis ICD10 Code Diagnosis Note [id number] Olga Vega [facility] [address] [address] 02/15/2023 10:44:56 02/15/2023 16:12:08 Pruritus of vulva 26632221 L29.2 Today we are trying to decide between a diagnosis of contact dermatitis vs yeast in skin. We agreed to a trial of mycolog ointment BID x 14 days.Daily zyrtec & review VCG's and incorporat e those immediatel y to further remove possible irritants. She will f/u in 2-3wks to see if progress has been made.Call sooner if any issues.VCG given for additional home review Counseled on medication R/B's, Most common side effects, & use. All questions were answered to patient satisfacti on. Time spent in visit is a total of 30mins with at least 50% of visit consisting of counseling and review of plan of care. [id number] Olga Vega [facility] [address] [address] 03/08/2023 11:12:05 03/08/2023 12:09:54 Pruritus of vulva 34265689 L29.2 N90.89 Here today for medication check.Myco log has worked extremely well with about 85% improvemen t.Now that initial swelling & erythema has calmed down it is more obvious that lichen's sclerosis is a possibilit y as classic white patchy tissue paper like appearance is more visible. We agreed to a vulvar biopsy today.Cont inue mycolog & VCG's.WIll update on results and next steps in POC.Agreea ble. Time spent in visit is a total of 15 mins with at least 50% of visit consisting of counseling and review of plan of care NOT including time spent on procedure today. [id number] Olga Vega [facility] [address],[facility] [place] [address] 03/30/2023 10:58:50 03/30/2023 14:50:56 Condyloma acuminata of vulva 528343028 A63.0 Today we discussed recent Bx results and request to repeat this bx to truly confirm this diagnosis. She is in agreement with this plan of care.We discussed that if we again get this diagnosis will need to refer to [facility] for consult/ev aluation/p ossible treatment. The inflammati on and erythema is MUCH improved; better able to visualize skin color which is still resembled white tissue paper; with flat brownish discolorat ion bilaterall y--very VERY light in color. These were visible difficult to see on exam.Her labia minora still look 'swollen'; uncertain of what significan ce this might hold but regardless bx results; I have suggested she get an evaluation of this by MD moving foward. She is in agreement with her current plan of care today with understand ing verbalized . Time spent in visit is a total of 15 mins with at least 50% of visit consisting of counseling and review of plan of care NOT including time spent on procedure today. 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 Regimen: Mycolog ointment-1 to 2x/day only PRN with sx's.Use Daily Crisco to vulvaConti nue to avoid contact irritantsF /U x 6mos vulva/med check Time spent in visit is a total of 25 mins with at least 50% of visit consisting of counseling and review of plan of care. [id number] Olga Vega [facility] [address] [address] 10/17/2023 11:01:06 10/17/2023 11:23:43 Genital lichen sclerosus 130823238 L90.0 Today we completed her 6mos f/u for LS management .She is doing really well.Asymp tomatic.Camarena ppy with current regimen.ID N use of mycologDai ly use of VCG'sExam much improved. F/U x 1yr or prnContact for RF's if needed of ointments. Time spent in visit is a total of 15 mins with at least 50% of visit consisting of counseling and review of plan of care. [id number] Zena Arnett [facility] [address] [address] 10/10/2024 10:58:55 10/10/2024 11:41:02 Genital lichen sclerosus 805278445 L90.0 health hx updated and reviewed todaydoing well with triamcinol one ointment PRNrefills sent, r/b/a reviewedvu lvar care guidelines discussed Atrophic vulva 290091335 N90.5 Vaginal dryness 41473535 N89.8 we discussed the addition of vaginal estrogenr/ b/a reviewed, rx sent, questions answeredf/ u in 3 months Time spent in visit is a total of 25 mins with at least 50% of visit consisting of counseling and review of plan of care. Health Concerns Section Related Observation LastModified by Organization Detai ls LastModified Time None Recorded Concern Status LastModified by Organization Details LastModified Time None Recorded Advance Directives Directive None Recorded Payers Encounter Date Sequence Insurance Name Policy Number Policy Mccormick Covered Member ID Mccormick Member ID Guarantor Name 03/08/2023 1 [employer] - [employer] (MEDICARE REPLACEMENT/ ADVANTAGE - HMO) [id number] Belkis Salgadoner [id number] Belkis Salgadoner 03/30/2023 1 [employer] - [employer] (MEDICARE REPLACEMENT/ ADVANTAGE - HMO) [id number] Belkis A Osei [id number] Belkis A Osei 04/14/2023 1 [employer] - [employer] (MEDICARE REPLACEMENT/ ADVANTAGE - HMO) [id number] Belkisjaron Salgadoner [id number] Belkis Jones Osei 10/17/2023 1 [employer] - [employer] (MEDICARE REPLACEMENT/ ADVANTAGE - HMO) [id number] Belkisjaron Salgadoner [id number] Belkis Jones Osei 10/10/2024 1 [employer] - [employer]IME (MEDICARE REPLACEMENT/ ADVANTAGE - HMO) [id number] Belkis Salgadoner [id number] Belkis Osei Notes Date Note Type Note Provider Name and Address Organization Details Recorded Time 03/08/2023 text/html Here today for medication check & possible vulvar biopsy. Olga Vega [facility] [address], [place], [address], [facility] 03/08/2023 12:02:41 03/30/2023 text/html Here today to jose c otero Vulvar Bx results & next steps in plan of care. Olga Vega [facility] [address], [place], [address], [facility] 03/30/2023 14:15:18 04/14/2023 text/html Here today to jose c otero Bx results. Olga Vega [facility] [address], [place], [address], [facility] 04/14/2023 11:52:10 10/17/2023 text/html Here today for 6 mos vulva/Medication check. ROVERTO Stuart- [address], [place], [address], [facility] 10/17/2023 11:21:13 10/10/2024 text/html 79yopresents for f/u on vulvar lichens sclerosuslichens sclerosis confirmed on vulvar biopsy done 03/2023using triamcinolone ointment PRN when feels irritated/itchy : about once per week or lessuses coconut oil nightlythis has controlled her symptomsstill feeling dryness at times ROVERTO Blair [address], [place], [address], [facility] 10/10/2024 11:39:07 OBGyn Episode Ob Episode Information Episode Created Date Number of Fetuses Patient Bloodtype Patient rh Status Prepregnancy Weight lbs Domestic Partner Domestic Partner Phone Father Name Process Consultant Status 02/16/20 23 1 CLOSED Fetus Data First Name Last Name Admitted to NICU Weight (g) Sex Living Outcome Pediatric Complications Fetus ID Race Codes Race Delivery Type M Full Term Vaginal Delivery Tyree Calculation Initial Tyree Date Initial Exam Date Initial Exam Provider Initial Ultrasound Date Last Menstrual Period Date Ultra Sound Weeks Gestation 0 Eighteen To Twenty Week Tyree Update Ultra Sound Date Fundal Height At Umbil Quickening Date Ultra Sound Latest Weeks Gestation Final Tyree Confirmed By Final Tyree Confirmed Date Final Tyree Date Ultra Sound Latest Days Gestation 0 0 Menstrual History Last Menstrual Date Menses Monthly On Bcp Conception Prior Menses Frequency Hcg Plus Date Menarche Onset Age Delivery Information Delivery Date Delivery Type Labor Anesthesia Weeks Gestation Incision Type Labor Labor Length Hrs Delivered By Post Complications Tubal Sterilization Discharge Date Comments 7 Alireza at age 14 Discharge Information Feeding Method Contraceptive Method Maternal HG B and HCT Levels
== END 2024-11-11 15:52 | disposition home or self-care (01) ==
PROVIDERS: PCP Family Medicine; Visit Provider Family Medicine
DX: S62.633A Displaced fracture of distal phalanx of left middle finger, initial encounter for closed fracture (principal); X58.XXXA Exposure to other specified factors, initial encounter; M19.042 Primary osteoarthritis, left hand; M19.032 Primary osteoarthritis, left wrist
CPT/HCPCS: 73130

== ENCOUNTER 2024-12-13 09:48 | Outpatient (RCR) | payer MEDICARE, SELFPAY ==
--- NOTE | 2024-12-13 11:17 | OTOPEVAL1 ---
Assessment and note entered by Sergio Duran, TAJ/Ileana, CHT OT Evaluation Information 12/13/24 Assessment Status Evaluation Diagnosis M20.012 Mallet finger of left middle finger Subjective Information Patient is right handed. She reports the injury occurred 09/17/24. She presents today for fabrication of splints. She had been using her hand normally since the injury and has noticed the tip of her finger is wobbly and swollen, otherwise she is not having pain. Reported Pain Level Pain Score 0: Self Report Assessment OT Clinical Summary Patient referred to OT with dx of mallet finger of the left middle finger. The patient's injury occurred about 3 months ago. Today 2 custom mallet finger splints were fabricated for the patient with the DIP resting in slight hyperextension. One splint is for continual wear and the other splint is for showering to reduce skin maceration and for hygiene. Patient demonstrates excellent care and technique with don and doffing splints, keeping the finger tip supported. Educated on timeline of splint wear. Plan to leave the patient 's care plan open x6 weeks to allow her to return for any splinting needs/modifications. She does have swelling on the dorsum of the DIP and when this reduces the splint may need adjusting to improve fit and reduce chance of it slipping off. Thank you for this referral. Plan of Care Interventions Check Out for Orthotic/Prosthetic OT Services Indicated Yes Treatment Frequency and Plan to leave the patient's care plan open x6 Duration weeks to allow her to return for any splinting needs/modifications. She does have swelling on the dorsum of the DIP and when this reduces the splint may need adjusting to improve fit and reduce chance of it slipping off. These treatments will address the objective and functional deficits as defined above. The patient will be advanced safely and appropriately in order for the patient to progress towards his/her prior level of function. Additional exercises will be introduced and as well as a comprehensive home exercise program upon discharge, if needed, ?to ensure carryover of functional gains achieved in the clinic. This treatment plan has been reviewed and agreement upon by the patient.
--- NOTE | 2025-02-07 12:56 | OTOPDC ---
Assessment and note entered by Sergio Duran, TAJ/Ileana, CHT OT Discharge Notification 02/07/25 Diagnosis M20.012 Mallet finger of left middle finger OT Clinical Summary - Patient referred to OT with dx of mallet finger of the left middle finger. 2 custom mallet finger splints were fabricated for the patient with the DIP resting in slight hyperextension (12/13/24). - Patient did not return for any splinting needs. - Per EMR, the patient followed up with MD and cleared to begin ROM on her own. - D/C OT at this time. Thank you for this referral. OT Services Indicated No
== END 2025-02-28 16:24 | disposition home or self-care (01) ==
LOC: ANHOT 09:48
PROVIDERS: PCP Family Medicine; Visit Provider Plastic Surgery
DX: M20.012 Mallet finger of left finger(s) (principal)
CPT/HCPCS: 97165; 97760; L3933